=== PATIENT | male | born 1930 | race Caucasian/White ===

== ENCOUNTER 2016-05-11 20:55 | Emergency (ER) | payer MEDICARE, OTHER ==
[~2016-05-11 20:55] MED LIST: BENZ100 PO; BIOTLIQ3 SWISH-SPIT; CHOL1TAB16 PO; CHOL5000 PO; CYAN1000P IM; FEXO15TA PO; MELA3TAB PO; MEMA21CA PO; MEMA28CA PO; METR-1 PO; PLAV75TA29 PO; PROS5TAB PO; RISP0.5T20 PO; VANC500I3 PO; VIST25CA PO
[2016-05-11 21:01] VITALS: BP 147/65; PULSE 71; RESP 18; TEMP 98.1; O2SAT 97
[2016-05-11 21:15] VITALS: PULSE 78; RESP 18; O2SAT 97
[2016-05-11] MEDS ORDERED: SODIUM CHLORIDE 0.9% FLUSH 5 ML FLUSH IVF PRN (21:15)
--- NOTE | 2016-05-11 21:45 | RADRPT ---
EXAM DATE/TIME: 05/11/2016 21:21 [facility] COMPARISON: CT CERVICAL SPINE W/O CONTRAST, August 09, 2013, 9:26. INDICATIONS : Fall today; head and neck pain. RADIATION DOSE: 20.78 CTDIvol (mGy) MEDICAL HISTORY : Cerebrovascular disease. Hypertension. SURGICAL HISTORY : None. ENCOUNTER: Initial ACUITY: 1 day PAIN SCALE: 3/10 LOCATION: neck TECHNIQUE: Volumetric scanning of the cervical spine was performed. Multiplanar reconstructions in the sagittal, coronal and oblique axial planes were performed. Using automated exposure control and adjustment o f the mA and/or kV according to patient size, radiation dose was kept as low as reasonably achievable to obtain optimal diagnostic quality images. FINDINGS: Cervical spine alignment is normal. Vertebral bodies have normal height. No cortical break or trabecu lar disruption. Small, partly calcified chronic appearing posterior disc protrusion seen at C3/C4. Moderate disc space narrowing with mild uncovertebral and facet osteoarthritis seen at C5/C6. There is solid bony bridging at C6/C7, presumably surgical although potentially developmental. Moderate osteoarthritis seen anteriorly at C1/C2. CONCLUSION: 1. Intact cervical spine. 2. Chronic degenerative changes as above. Stephen Zayas MD on May 11, 2016 at 21:40 Board Certified Radiologist. This report was verified electronically.
--- NOTE | 2016-05-11 21:46 | RADRPT ---
EXAM DATE/TIME: 05/11/2016 21:21 [facility] COMPARISON: No previous studies available for comparison. INDICATIONS : Fall today; head and neck pain. RADIATION DOSE: 31.05 CTDIvol (mGy) MEDICAL HISTORY : Cerebrovascular disease. Hypertension. SURGICAL HISTORY : None. ENCOUNTER: Initial ACUITY: 1 day PAIN SCALE: 4/10 LOCATION: cranial TECHNIQUE: Multiple contiguous axial images were obtained of the head. Using automated exposure control and adj ustment of the mA and/or kV according to patient size, radiation dose was kept as low as reasonably a chievable to obtain optimal diagnostic quality images. FINDINGS: CEREBRUM: The ventricles are normal for age. No evidence of midline shift, mass lesion, hemorrhage or acute in farction. No extra-axial fluid collections are seen. Chronic low attenuation seen in the periventric ular white matter. POSTERIOR FOSSA: The cerebellum and brainstem are intact. The 4th ventricle is midline. The cerebellopontine angle i s unremarkable. EXTRACRANIAL: There is mucoperiosteal thickening of the visualized ethmoid air cells. SKULL: The calvaria is intact. No evidence of skull fracture. CONCLUSION: 1. No bleed or other acute intracranial abnormality. 2. Chronic white matter changes. 3. Mild sinus disease. Stephen Zayas MD on May 11, 2016 at 21:44 Board Certified Radiologist. This report was verified electronically.
--- NOTE | 2016-05-11 21:47 | RADRPT ---
EXAM DATE/TIME: 05/11/2016 21:26 [facility] COMPARISON: No previous studies available for comparison. INDICATIONS : Shortness of breath. Syncope. MEDICAL HISTORY : Hypertension. Cardiovascular disease. SURGICAL HISTORY : None. ENCOUNTER: Initial ACUITY: 1 day PAIN SCORE: Non-responsive. LOCATION: Bilateral chest FINDINGS: A single view of the chest demonstrates the lungs to be symmetrically aerated without evidence of mas s, infiltrate or effusion. The cardiomediastinal contours are unremarkable. Osseous structures are intact. CONCLUSION: No acute cardiopulmonary disease demonstrated. Stephen Zayas MD on May 11, 2016 at 21:46 Board Certified Radiologist. This report was verified electronically.
[2016-05-11 22:01] LABS: AUTOMATED NEUTROPHIL # 4.4 TH/MM3 (1.8-7.7); BASOPHIL # 0.1 TH/MM3 (0-0.2); EOSINOPHIL # 0.5 TH/MM3 (0-0.4); EOSINOPHIL % 6.5 % (0.0-4.0); HEMATOCRIT 36.9 % (39.0-51.0); HEMO FLAGS DIFF FINAL; LYMPH % 17.5 % (9.0-44.0); LYMPHOCYTE # 1.2 TH/MM3 (1.0-4.8); MEAN CELL VOLUME 85.3 FL (80.0-100.0); MEAN CORPUSCULAR HEMOGLOBIN 28.2 PG (27.0-34.0); MONO % 12.5 % (0.0-8.0); NEUT % 62.5 % (16.0-70.0); PLATELET COUNT 352 TH/MM3 (150-450); RED BLOOD COUNT 4.32 MIL/MM3 (4.50-5.90); RED CELL DISTRIBUTION WIDTH 15.6 % (11.6-17.2)
[2016-05-11 22:08] LABS: BACTERIA, URINE MANY /hpf; BLOOD, URINE NEG (NEG); GLUCOSE,URINE NEG (NEG); KETONE, URINE NEG (NEG); PH, URINE 6.5 (5.0-8.5); SQUAMOUS EPITHELIAL CELL URINE <1 /hpf (0-5); URINE COLOR YELLOW (YELLW/STRAW)
[2016-05-11 22:09] LABS: COMMENT (UR) CATH-CULTURE IND; CULTURE IF INDICATED CATH CULTURE IND; NITRITE,URINE POS (NEG)
[2016-05-11 22:11] LABS: APTT (PATIENT) 24.9 SEC (24.3-30.1)
[2016-05-11 22:21] VITALS: BP 138/52; PULSE 75; RESP 16; O2SAT 96
[2016-05-11 22:27] LABS: BICARBONATE 31.9 MEQ/L (21.0-32.0)
[2016-05-11] MEDS ORDERED: cefTRIAXone INJ 1,000 MG in SODIUM CHLORIDE 0.9% INJ 100 ML IV ONE (22:30)
[2016-05-11 22:35] LABS: POTASSIUM 4.2 MEQ/L (3.5-5.1)
[2016-05-11] MEDS ORDERED: CIPR-9 PO (23:03)
--- NOTE | 2016-05-11 23:04 | PD ---
HPI Chief Complaint: Fall Time Seen by Provider: 21:04 Travel History International Travel<30 days: No Contact w/Intl Traveler<30days: No Traveled to known affect area: No History of Present Illness HPI 85-year-old male sent in from his [facility]dc for evaluation of head trauma after a fall that occurred earlier today. The patient reports that he was walking to the bathroom with his walker when he became dizzy/lost his balance and fell backwards. He denies LOC. Fall was unwitnessed. He was complaining of some posterior head pain, however upon arrival to the emergency department the patient denies any physical complaints. Denies head neck or back pain. No pain in any other joint or extremity. No chest pain or dyspnea. 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) Diabetes: No Diminished Hearing: Yes ([place]) Endocrine: No GERD: Yes Genitourinary: Yes (BENIGN PROSTATE HYPERTROPHY) Hiatal Hernia: No Hypertension: Yes Immune Disorder: No Implanted Vascular Access Dvce: Yes Kidney Stones: No Musculoskeletal: Yes (ARTHRITIS ) Neurologic: Yes (CVA WITH WEAKNESS) Psychiatric: No Reproductive: No Respiratory: Yes (COPD) Migraines: No Radiation Therapy: No Renal Failure: Yes Seizures: No Sleep Apnea: No Thyroid Disease: No Ulcer: No Past Surgical History Abdominal Surgery: Yes (appendectomy,cyst removal,inguinal hernia repair) AICD: No Appendectomy: Yes Arteriovenous Shunt: No Cardiac Surgery: No Ear Surgery: No Eye Surgery: No Genitourinary Surgery: No Gynecologic Surgery: No Insulin Pump: No Joint Replacement: Yes (LT HIP) Oral Surgery: No Pacemaker: No Other Surgery: Yes (LEFT HIP /APPENDECTOMY/) Social History Alcohol Use: No Tobacco Use: No Substance Use: No Allergies-Medications (Allergen,Severity, Reaction): Coded Allergies: Aspirin (Verified Allergy, Severe, 05/11/16) Voltaren (Verified Allergy, Severe, 05/11/16) Lovastatin (Verified Allergy, Mild, 05/11/16) *MDRO Multi-Drug Resistant Organism (Unverified Allergy, Unknown, 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 C.diff 09/2013 Simvastatin (Verified Allergy, Unknown, 05/11/16) Reported Meds & Prescriptions Reported Meds & Active Scripts Active Reported Risperdal (Risperidone) 0.5 Mg Tab 0.5 Mg PO Q12HR Vistaril (Hydroxyzine Pamoate) 25 Mg Cap 25 Mg PO Q6H PRN Vitamin D3 (Cholecalciferol) 50,000 Unit Tab 50,000 Units PO MONTHLY Namenda Xr (Memantine) 28 Mg Caper 28 Mg PO DAILY 7 Days START: 02/27/2016 FOR 7 DAYS Namenda Xr (Memantine) 21 Mg Caper 21 Mg PO DAILY 7 Days Melatonin 3 Mg Tab 6 Mg PO HS PRN Tessalon Perles (Benzonatate) 100 Mg Cap 100 Mg PO TID Proscar (Finasteride) 5 Mg Tab 5 Mg PO DAILY Do not crush. Sadie Allergy (Fexofenadine HCl) 180 Mg Tab 180 Mg PO DAILY Cyanocobalamin Inj (Cyanocobalamin) 1,000 Mcg/Ml Inj 1,000 Mcg IM Q30D Plavix (Clopidogrel Bisulfate) 75 Mg Tab 75 Mg PO DAILY If okay with GI Review of Systems Except as stated in HPI: all other systems reviewed are Neg Physical Exam Narrative GENERAL: Well-developed, well-nourished, elderly-appearing male, awake, alert, no acute distress. SKIN: Warm and dry. Patient, abrasions, or ecchymosis. HEAD: Atraumatic. Normocephalic. EYES: Pupils equal and round. No scleral icterus. No injection or drainage. ENT: No nasal bleeding or discharge. Mucous membranes pink and moist. NECK: Trachea midline. No JVD. CARDIOVASCULAR: Regular rate and rhythm. RESPIRATORY: No accessory muscle use. Clear to auscultation. Breath sounds equal bilaterally. GASTROINTESTINAL: Abdomen soft, non-tender, nondistended. MUSCULOSKELETAL: No obvious deformities. No clubbing. No cyanosis. No edema. NEUROLOGICAL: Awake and alert. No obvious cranial nerve deficits. Motor grossly within normal limits. Normal speech. PSYCHIATRIC: Appropriate mood and affect; insight and judgment normal. Data Data Last Documented VS Vital Signs Date Time Temp Pulse Resp B/P Pulse Ox O2 Delivery O2 Flow Rate FiO2 05/11/16 22:21 75 16 138/52 96 05/11/16 21:01 98.1 Orders Basic Metabolic Panel (Bmp) (05/11/16 21:08) Complete Blood Count With Diff (05/11/16 21:08) Prothrombin Time / Inr (Pt) (05/11/16 21:08) Act Partial Throm Time (Ptt) (05/11/16 21:08) Iv Access Insert/Monitor (05/11/16 21:08) Ecg Monitoring (05/11/16 21:08) Oximetry (05/11/16 21:08) Sodium Chloride 0.9% Flush (Ns Flush) (05/11/16 21:15) Ct Brain W/O Iv Contrast(Rout) (05/11/16 ) Ct Cerv Spine W/O Contrast (05/11/16 ) Urinalysis - C+S If Indicated (05/11/16 21:08) Cath For Specimen (05/11/16 21:08) Chest, Single Ap (05/11/16 ) Electrocardiogram (05/11/16 ) Urine Culture (05/11/16 21:45) Ceftriaxone Inj (Rocephin Inj) (05/11/16 22:30) Labs Laboratory Tests Test 05/11/16 05/11/16 21:22 21:45 White Blood Count 7.0 TH/MM3 Red Blood Count 4.32 MIL/MM3 Hemoglobin 12.2 GM/DL Hematocrit 36.9 % Mean Corpuscular Volume 85.3 FL Mean Corpuscular Hemoglobin 28.2 PG Mean Corpuscular Hemoglobin 33.0 % Concent Red Cell Distribution Width 15.6 % Platelet Count 352 TH/MM3 Mean Platelet Volume 9.2 FL Neutrophils (%) (Auto) 62.5 % Lymphocytes (%) (Auto) 17.5 % Monocytes (%) (Auto) 12.5 % Eosinophils (%) (Auto) 6.5 % Basophils (%) (Auto) 1.0 % Neutrophils # (Auto) 4.4 TH/MM3 Lymphocytes # (Auto) 1.2 TH/MM3 Monocytes # (Auto) 0.9 TH/MM3 Eosinophils # (Auto) 0.5 TH/MM3 Basophils # (Auto) 0.1 TH/MM3 CBC Comment DIFF FINAL Differential Comment Prothrombin Time 11.0 SEC Prothromb Time International 1.0 RATIO Ratio Activated Partial 24.9 SEC Thromboplast Time Sodium Level 142 MEQ/L Potassium Level 4.2 MEQ/L Chloride Level 104 MEQ/L Carbon Dioxide Level 31.9 MEQ/L Anion Gap 6 MEQ/L Blood Urea Nitrogen 14 MG/DL Creatinine 0.81 MG/DL Estimat Glomerular Filtration 90 ML/MIN Rate Random Glucose 99 MG/DL Calcium Level 8.8 MG/DL Urine Color YELLOW Urine Turbidity HAZY Urine pH 6.5 Urine Specific [place] 1.012 Urine Protein NEG mg/dL Urine Glucose (UA) NEG mg/dL Urine Ketones NEG mg/dL Urine Occult Blood NEG Urine Nitrite POS Urine Bilirubin NEG Urine Urobilinogen 2.0 MG/DL Urine Leukocyte Esterase LARGE Urine RBC 10 /hpf Urine WBC 50 /hpf Urine Squamous Epithelial <1 /hpf Cells Urine Bacteria MANY /hpf Microscopic Urinalysis Comment CATH-CULTURE IND MDM Medical Decision Making Medical Screen Exam Complete: Yes Emergency Medical Condition: Yes Medical Record Reviewed: Yes Interpretation(s) EKG: Sinus, rate 69, left axis deviation, normal intervals, no acute ischemic abnormality. Differential Diagnosis Intracranial trauma, cervical spine injury, mechanical fall, UTI, dehydration, metabolic abnormality Narrative Course Vital signs reviewed. CBC is unremarkable. BMP is unremarkable. UA is suggestive of UTI. CT head: No bleed or other acute intracranial abnormality. Chronic white matter changes. Mild sinus disease. CT cervical spine: Intact cervical spine. Chronic degenerative changes. Chest x-ray: No acute cardio pulmonary disease. Chart review shows that the patient's most recent UTI grew out pseudomonas aeruginosa which was pansensitive. He was given a dose of Rocephin here in the emergency department be started on Cipro. He is stable for discharge back to his fdc. Diagnosis Primary Impression: Closed head injury Qualified Code: S09.90XA - Closed head injury, initial encounter Additional Impressions: Fall Qualified Code: W19.XXXA - Fall, initial encounter UTI (urinary tract infection) Qualified Code: N39.0 - Urinary tract infection with hematuria, site unspecified Referrals: Primary Care Physician 3 days Additional Instructions: Follow-up with your primary care physician this week. Give antibiotics as prescribed. Return to the emergency department if worsening symptoms or any other concerns. Scripts Ciprofloxacin (Cipro)500 Mg [id number] Mg PO BID 7 Days Ref 0 Prov:Francisco Orosco MD 05/11/16 Francisco Orosco MD May 11, 2016 23:03
[2016-05-12 06:24] VITALS: BP 121/57; PULSE 64; RESP 20; O2SAT 93
--- NOTE | 2016-05-12 22:14 | EKG ---
Date Performed: 05/11/2016 Time Performed: 21:42:49 PTAGE: 85 years EKG: Sinus rhythm MARKED LEFT AXIS DEVIATION ABNORMAL ECG PREVIOUS TRACING : 05/11/2016 21.42 Compared to the previous tracing, rate slower DOCTOR: Urvashi Petit Interpretating Date/Time 05/12/2016 22:12:58
== END 2016-05-12 08:55 ==
LOC: NEPA 20:55
DX: S09.90XA Unspecified injury of head, initial encounter (principal); N39.0 Urinary tract infection, site not specified; R31.9 Hematuria, unspecified; B96.29 Other Escherichia coli [E. coli] as the cause of diseases classified elsewhere; D64.9 Anemia, unspecified; M19.90 Unspecified osteoarthritis, unspecified site; I10 Essential (primary) hypertension; J44.9 Chronic obstructive pulmonary disease, unspecified; Z96.642 Presence of left artificial hip joint
CPT/HCPCS: 70450; 71010; 72125; 80048; 81001; 85025; 85610; 85730; 87077; 87086; 87186; 93005; 96365; 96366; 99284; J0696; P9612

== ENCOUNTER 2016-09-03 03:58 | Inpatient (IN) | payer MEDICARE, OTHER ==
[2016-09-03] VITALS (24 sets, daily range): BP systolic 64–111; BP diastolic 32–58; PULSE 77–102; RESP 14–18; TEMP 97.4–98.8; O2SAT 96–100
[~2016-09-03] VITALS: Ht 170.2 cm; Wt 70.7 kg
[~2016-09-03 03:58] MED LIST changes: -BIOTLIQ3 SWISH-SPIT; -CHOL5000 PO; +CIPR-9 PO; -METR-1 PO; -VANC500I3 PO
[2016-09-03] MEDS ORDERED: SODIUM CHLOR 0.9% 1000 ML INJ 1,000 ML IV SCH (04:03)
--- NOTE | 2016-09-03 04:12 | PD ---
HPI Chief Complaint: GI Complaint Time Seen by Provider: 04:03 Travel History International Travel<30 days: No Contact w/Intl Traveler<30days: No History of Present Illness HPI The patient is 85 years old and he arrives from a retirement. He developed bloody diarrhea prompting EMS activation. They note on scene he was found on the toilet in the midst of a bloody bowel movement. He has a history of C. difficile colitis. EMS reports the blood pressure is about 110 over systolic with a heart rate of about 90-100. The patient denies abdominal pain nausea vomiting fever. He does report recurrent episodes of diarrhea which is bloody. The patient takes Plavix. 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) Diabetes: No Diminished Hearing: Yes ([place]) Endocrine: No GERD: Yes Genitourinary: Yes (BENIGN PROSTATE HYPERTROPHY) Hiatal Hernia: No Hypertension: Yes Immune Disorder: No Implanted Vascular Access Dvce: Yes Kidney Stones: No Musculoskeletal: Yes (ARTHRITIS ) Neurologic: Yes (CVA WITH WEAKNESS) Psychiatric: No Reproductive: No Respiratory: Yes (COPD) Migraines: No Radiation Therapy: No Renal Failure: Yes Seizures: No Sleep Apnea: No Thyroid Disease: No Ulcer: No Past Surgical History Abdominal Surgery: Yes (appendectomy,cyst removal,inguinal hernia repair) AICD: No Appendectomy: Yes Arteriovenous Shunt: No Cardiac Surgery: No Ear Surgery: No Eye Surgery: No Genitourinary Surgery: No Gynecologic Surgery: No Insulin Pump: No Joint Replacement: Yes (LT HIP) Oral Surgery: No Pacemaker: No Other Surgery: Yes (LEFT HIP /APPENDECTOMY/) Social History Alcohol Use: No Tobacco Use: No Substance Use: No Allergies-Medications (Allergen,Severity, Reaction): Coded Allergies: Aspirin (Verified Allergy, Severe, 05/11/16) Voltaren (Verified Allergy, Severe, 05/11/16) Lovastatin (Verified Allergy, Mild, 05/11/16) *MDRO Multi-Drug Resistant Organism (Unverified Allergy, Unknown, 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 C.diff 09/2013 Simvastatin (Verified Allergy, Unknown, 05/11/16) Reported Meds & Prescriptions Reported Meds & Active Scripts Active Cipro (Ciprofloxacin HCl) 500 Mg Tab 500 Mg PO BID 7 Days Reported Risperdal (Risperidone) 0.5 Mg Tab 0.5 Mg PO Q12HR Vistaril (Hydroxyzine Pamoate) 25 Mg Cap 25 Mg PO Q6H PRN Vitamin D3 (Cholecalciferol) 50,000 Unit Tab 50,000 Units PO MONTHLY Namenda Xr (Memantine) 28 Mg Caper 28 Mg PO DAILY 7 Days START: 02/27/2016 FOR 7 DAYS Namenda Xr (Memantine) 21 Mg Caper 21 Mg PO DAILY 7 Days Melatonin 3 Mg Tab 6 Mg PO HS PRN Tessalon Perles (Benzonatate) 100 Mg Cap 100 Mg PO TID Proscar (Finasteride) 5 Mg Tab 5 Mg PO DAILY Do not crush. Sadie Allergy (Fexofenadine HCl) 180 Mg Tab 180 Mg PO DAILY Cyanocobalamin Inj (Cyanocobalamin) 1,000 Mcg/Ml Inj 1,000 Mcg IM Q30D Plavix (Clopidogrel Bisulfate) 75 Mg Tab 75 Mg PO DAILY If okay with GI Review of Systems Except as stated in HPI: all other systems reviewed are Neg General / Constitutional: No: Fever Gastrointestinal: Positive: Diarrhea Physical Exam Narrative GENERAL: 85-year-old male well-nourished well-developed female 3 SKIN: Focused skin assessment warm/dry. HEAD: Atraumatic. Normocephalic. EYES: Pupils equal and round. No scleral icterus. No injection or drainage. ENT: No nasal bleeding or discharge. Mucous membranes pink and moist. NECK: Trachea midline. No JVD. CARDIOVASCULAR: Regular rate and rhythm. No murmur appreciated. RESPIRATORY: No accessory muscle use. Clear to auscultation. Breath sounds equal bilaterally. GASTROINTESTINAL: Soft. No focus of tenderness. MUSCULOSKELETAL: No obvious deformities. No clubbing. No cyanosis. No edema. NEUROLOGICAL: Awake and alert. No obvious cranial nerve deficits. Motor grossly within normal limits. Normal speech. PSYCHIATRIC: Appropriate mood and affect; insight and judgment normal. Data Data Last Documented VS Vital Signs Date Time Temp Pulse Resp B/P Pulse Ox O2 Delivery O2 Flow Rate FiO2 09/03/16 04:07 94 14 105/58 97 Room Air 09/03/16 04:02 98.6 Orders Basic Metabolic Panel (Bmp) (09/03/16 04:03) Complete Blood Count With Diff (09/03/16 04:03) Prothrombin Time / Inr (Pt) (09/03/16 04:03) Act Partial Throm Time (Ptt) (09/03/16 04:03) Type And Screen (09/03/16 04:03) Ecg Monitoring (09/03/16 04:03) Iv Access Insert/Monitor (09/03/16 04:03) Oximetry (09/03/16 04:03) Ondansetron Inj (Zofran Inj) (09/03/16 04:15) Pantoprazole Inj (Protonix Inj) (09/03/16 04:15) Sodium Chlor 0.9% 1000 Ml Inj (Ns 1000 M (09/03/16 04:03) Sodium Chloride 0.9% Flush (Ns Flush) (09/03/16 04:15) C Diff Toxin Pcr (09/03/16 04:03) Metronidazole 500 Mg Inj (Flagyl 500 Mg (09/03/16 05:15) Red Blood Cells (Rbc) (09/03/16 05:08) Blood Product Administration .UPON TRANSFUSION (09/03/16 05:08) Sodium Chlor 0.9% 250 Ml Inj (Ns 250 Ml (09/03/16 05:15) Vancomycin For Oral Use Only (Vancomycin (09/03/16 05:08) Gi Bleeding Scan (09/03/16 ) Admit Order (Ed Use Only) (09/03/16 05:08) Labs Laboratory Tests Test 09/03/16 04:10 White Blood Count 7.2 TH/MM3 Red Blood Count 3.72 MIL/MM3 Hemoglobin 10.7 GM/DL Hematocrit 33.2 % Mean Corpuscular Volume 89.3 FL Mean Corpuscular Hemoglobin 28.9 PG Mean Corpuscular Hemoglobin 32.3 % Concent Red Cell Distribution Width 14.4 % Platelet Count 227 TH/MM3 Mean Platelet Volume 9.5 FL Neutrophils (%) (Auto) 60.0 % Lymphocytes (%) (Auto) 19.2 % Monocytes (%) (Auto) 14.4 % Eosinophils (%) (Auto) 5.5 % Basophils (%) (Auto) 0.9 % Neutrophils # (Auto) 4.3 TH/MM3 Lymphocytes # (Auto) 1.4 TH/MM3 Monocytes # (Auto) 1.0 TH/MM3 Eosinophils # (Auto) 0.4 TH/MM3 Basophils # (Auto) 0.1 TH/MM3 CBC Comment DIFF FINAL Differential Comment Prothrombin Time 12.1 SEC Prothromb Time International 1.1 RATIO Ratio Activated Partial 27.3 SEC Thromboplast Time Stool C. difficile Toxin (PCR) POSITIVE Stl C. difficile Toxin PRESUMPTIVE Epiderm 027 NEGATIVE Sodium Level 144 MEQ/L Potassium Level 4.1 MEQ/L Chloride Level 112 MEQ/L Carbon Dioxide Level 26.3 MEQ/L Anion Gap 6 MEQ/L Blood Urea Nitrogen 18 MG/DL Creatinine 0.63 MG/DL Estimat Glomerular Filtration 121 ML/MIN Rate Random Glucose 100 MG/DL Calcium Level 7.7 MG/DL Blood Type A POSITIVE Antibody Screen NEGATIVE MDM Medical Decision Making Medical Screen Exam Complete: Yes Emergency Medical Condition: Yes Medical Record Reviewed: Yes Differential Diagnosis Anemia, upper GI bleed, lower GI bleed, C. difficile colitis, colitis, sepsis, hemorrhagic shock Narrative Course CBC & BMP Diagram 09/03/16 04:10 INR 1.1 Hemoglobin 12.2 four months prior. Pt had large bloody bowel movement at 505AM. 2U PRBCs ordered. Platelets ordered stat. NM scan ordered. Flagyl/Vanco started. C. difficile positive Right internal jugular central venous access established D/w Dr Smith Critical Care Narrative Aggregate critical care time was 35 minutes. Time to perform other separately billable procedures was not included in the critical care time. My time did not include minutes spent treating any other patients simultaneously or on activities that did not directly contribute to the patient's treatment. The services I provided to this patient were to treat and/or prevent clinically significant deterioration that could result in: hemorrhagic shock, anemia, GI bleed I provided critical care services requiring my management, as noted below: Chart data review, documentation time, medication orders and management, vital sign assessments/reviewing monitor data, ordering and reviewing lab tests, ordering and interpreting/reviewing x-rays and diagnostic studies, care of the patient and discussion of the patient with the admitting physicians. Procedures Procedure Narrative CENTRAL VENOUS LINE: The site was prepped with Betadine and sterilely draped. It was infiltrated with 1% lidocaine plain. The deep vein was cannulated using normal Seldinger technique. A 3 lumen central line was placed in the right internal jugular site and secured with simple interrupted suture. The site was sterilely dressed. The patient tolerated the procedure well. Ultrasound guidance employed. Diagnosis Primary Impression: Bloody diarrhea Additional Impressions: Hypotension Qualified Code: I95.9 - Hypotension, unspecified hypotension type Clostridium difficile colitis Admitting Information Admitting Physician Requests: Howard Bennett MD Sep 03, 2016 04:12
[2016-09-03] MEDS ORDERED: PANTOPRAZOLE SODIUM 40 MG VIAL IVP ONE (04:15)
[2016-09-03] MEDS ORDERED: SODIUM CHLORIDE 0.9% FLUSH 10 ML FLUSH IVF PRN (04:15)
[2016-09-03] MEDS ORDERED: ONDANSETRON HCL 4 MG/2 ML VIAL IVP ONE (04:15)
[2016-09-03 04:28] LABS: AUTOMATED NEUTROPHIL # 4.3 TH/MM3 (1.8-7.7); BASOPHIL # 0.1 TH/MM3 (0-0.2); BASOPHIL % 0.9 % (0.0-2.0); EOSINOPHIL # 0.4 TH/MM3 (0-0.4); EOSINOPHIL % 5.5 % (0.0-4.0); HEMATOCRIT 33.2 % (39.0-51.0); HEMO FLAGS DIFF FINAL; LYMPH % 19.2 % (9.0-44.0); LYMPHOCYTE # 1.4 TH/MM3 (1.0-4.8); MEAN CELL VOLUME 89.3 FL (80.0-100.0); MEAN CORPUSCULAR HEMOGLOBIN 28.9 PG (27.0-34.0); MEAN CORPUSCULAR HGB CONC 32.3 % (32.0-36.0); MONO % 14.4 % (0.0-8.0); PLATELET COUNT 227 TH/MM3 (150-450); RED BLOOD COUNT 3.72 MIL/MM3 (4.50-5.90); RED CELL DISTRIBUTION WIDTH 14.4 % (11.6-17.2); WHITE BLOOD COUNT 7.2 TH/MM3 (4.0-11.0)
[2016-09-03 04:44] LABS: APTT (PATIENT) 27.3 SEC (24.3-30.1); INTERNATIONAL NORMALIZED RATIO 1.1 RATIO; PROTHROMBIN TIME - PATIENT 12.1 SEC (9.8-11.6)
[2016-09-03 04:57] LABS: BICARBONATE 26.3 MEQ/L (21.0-32.0); POTASSIUM 4.1 MEQ/L (3.5-5.1)
[2016-09-03] MEDS ORDERED: VANCOMYCIN 500 MG VIAL (FOR ORAL USE ONLY) PO STA (05:08)
[2016-09-03] MEDS ORDERED: SODIUM CHLOR 0.9% 250 ML INJ 250 ML IV ONE (05:15)
[2016-09-03] MEDS ORDERED: metroNIDAZOLE 500 MG INJ 100 ML IV ONE (05:15)
[2016-09-03 05:18] LABS: C. DIFF EPI 027 PRESUMPTIVE NEGATIVE (NEGATIVE)
[2016-09-03] MEDS ORDERED: hydrOXYzine PAMOATE 25 MG CAP PO PRN (05:30)
[2016-09-03] MEDS ORDERED: RESP: ALBUTEROL 2.5 MG/IPRATROPIUM 0.5 MG NEB (PRN) INH (05:30)
[2016-09-03] MEDS ORDERED: CHLORHEXIDINE GLUCONATE 2 % 1 PACK (2 CLOTHS) TOP PRN (05:30)
[2016-09-03] MEDS ORDERED: MISCELLANEOUS NURSING INFORMATION XX SCH (05:30)
[2016-09-03] MEDS ORDERED: SODIUM CHLORIDE 0.9% FLUSH 10 ML FLUSH PRN (05:30)
[2016-09-03] MEDS ORDERED: MORPHINE SULFATE 4 MG/ML INJ IV PRN ×2 (05:30→09:30)
[2016-09-03] MEDS ORDERED: LACTULOSE SYRUP 20 GM/30 ML CUP PO PRN (05:30)
[2016-09-03] MEDS ORDERED: BISACODYL 10 MG SUPP RECTAL PRN (05:30)
[2016-09-03] MEDS ORDERED: ACETAMINOPHEN 325 MG TAB PO PRN (05:30)
[2016-09-03] MEDS ORDERED: ONDANSETRON HCL 4 MG/2 ML VIAL IV PRN (05:30)
[2016-09-03] MEDS ORDERED: LORazepam 2 MG/ML VIAL IV PRN (05:30)
[2016-09-03] MEDS ORDERED: SENNOSIDES 8.6 MG TAB PO PRN (05:30)
[2016-09-03] MEDS ORDERED: PROCHLORPERAZINE 25 MG SUPP RECTAL PRN (05:30)
[2016-09-03] MEDS ORDERED: MAGNESIUM HYDROXIDE SUSP 30 ML CUP PO PRN (05:30)
[2016-09-03] MEDS ORDERED: ZOLPIDEM TARTRATE 5 MG TAB PO PRN (05:30)
[2016-09-03] MEDS ORDERED: METOCLOPRAMIDE HCL 10 MG/2 ML VIAL IV PRN (05:30)
[2016-09-03] MEDS ORDERED: MELATONIN 5 MG TAB PO PRN (05:45)
[2016-09-03 05:50] LABS: C. DIFF TOXIN PCR POSITIVE (NEGATIVE)
[2016-09-03] MEDS: SODIUM CHLOR 0.9% 1000 ML INJ 1,000 ML IV SCH ×3 (06:06→23:45)
[2016-09-03] MEDS: PANTOPRAZOLE SODIUM 40 MG VIAL IV SCH ×2 (06:07→18:00)
--- NOTE | 2016-09-03 06:49 | RADRPT ---
EXAM DATE/TIME: 09/03/2016 06:08 [facility] COMPARISON: CHEST SINGLE AP, May 11, 2016, 21:26. INDICATIONS : Line placement MEDICAL HISTORY : Hypertension. SURGICAL HISTORY : None. ENCOUNTER: Initial ACUITY: 1 day PAIN SCORE: 0/10 LOCATION: Bilateral chest FINDINGS: The cardiac silhouette is normal in transverse diameter. There is subsegmental atelectasis in the lef t base. A right sided internal jugular vein catheter is in place without pneumothorax with its tip in the superior vena cava. CONCLUSION: 1. Uncomplicated line placement. No evidence of pneumothorax. Good Lock MD on September 03, 2016 at 6:47 Board Certified Radiologist. This report was verified electronically.
[2016-09-03] MEDS ORDERED: SODIUM CHLOR 0.9% 1000 ML INJ 1,000 ML IV ONE ×2 (07:15)
[2016-09-03] MEDS ORDERED: TERBUTALINE INJ 1 MG/ML AMP SQ PRN (08:00)
--- NOTE | 2016-09-03 08:18 | HHI.HP ---
HPI Service Critical Care Medicine Primary Care Physician No Primary Care Physician Admission Diagnosis GI Hemorrhage Diagnosis: Travel History International Travel<30 Days: No Contact w/Intl Traveler <30 Da: No Traveled to Known Affected Are: No History of Present Illness The patient is 85 years old and he arrives from a fpc. He developed bloody diarrhea prompting EMS activation. They note on scene he was found on the toilet in the midst of a bloody bowel movement. He has a history of C. difficile colitis. EMS reports the blood pressure is about 110 over systolic with a heart rate of about 90-100. The patient denied abdominal pain nausea vomiting fever. He does report recurrent episodes of diarrhea which is bloody. The patient takes Plavix. The patient was hypotensive with systolic blood pressure in the 70s . A central line was placed and the ED the patient was volume resuscitated and received 2 units of PRBC's. Critical care medicine was consulted for management. Upon my arrival to the ED the patient was noted to have copious rectal bleeding, completing second unit of PRBC's. BP of pulmonary arrival was 112/79. Repeat labs pending. GI has been consulted. 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) Diabetes: No Diminished Hearing: Yes ([place]) Endocrine: No GERD: Yes Genitourinary: Yes (BENIGN PROSTATE HYPERTROPHY) Hiatal Hernia: No Hypertension: Yes Immune Disorder: No Implanted Vascular Access Dvce: Yes Kidney Stones: No Musculoskeletal: Yes (ARTHRITIS ) Neurologic: Yes (CVA WITH WEAKNESS) Psychiatric: No Reproductive: No Respiratory: Yes (COPD) Migraines: No Radiation Therapy: No Renal Failure: Yes Seizures: No Sleep Apnea: No Thyroid Disease: No Ulcer: No Past Surgical History Abdominal Surgery: Yes (appendectomy,cyst removal,inguinal hernia repair) AICD: No Appendectomy: Yes Arteriovenous Shunt: No Cardiac Surgery: No Ear Surgery: No Eye Surgery: No Genitourinary Surgery: No Gynecologic Surgery: No Insulin Pump: No Joint Replacement: Yes (LT HIP) Oral Surgery: No Pacemaker: No Other Surgery: Yes (LEFT HIP /APPENDECTOMY/) Social History Alcohol Use: No Tobacco Use: No Substance Use: No Allergies-Medications Allergies-Medications (Allergen,Severity, Reaction): Coded Allergies: Aspirin (Verified Allergy, Severe, 05/11/16) Voltaren (Verified Allergy, Severe, 05/11/16) Lovastatin (Verified Allergy, Mild, 05/11/16) *MDRO Multi-Drug Resistant Organism (Unverified Allergy, Unknown, 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 C.diff 09/2013 Simvastatin (Verified Allergy, Unknown, 05/11/16) Reported Meds & Prescriptions Reported Meds & Active Scripts Active Cipro (Ciprofloxacin HCl) 500 Mg Tab 500 Mg PO BID 7 Days Reported Risperdal (Risperidone) 0.5 Mg Tab 0.5 Mg PO Q12HR Vistaril (Hydroxyzine Pamoate) 25 Mg Cap 25 Mg PO Q6H PRN Vitamin D3 (Cholecalciferol) 50,000 Unit Tab 50,000 Units PO MONTHLY Namenda Xr (Memantine) 28 Mg Caper 28 Mg PO DAILY 7 Days START: 02/27/2016 FOR 7 DAYS Namenda Xr (Memantine) 21 Mg Caper 21 Mg PO DAILY 7 Days Melatonin 3 Mg Tab 6 Mg PO HS PRN Tessalon Perles (Benzonatate) 100 Mg Cap 100 Mg PO TID Proscar (Finasteride) 5 Mg Tab 5 Mg PO DAILY Do not crush. Sadie Allergy (Fexofenadine HCl) 180 Mg Tab 180 Mg PO DAILY Cyanocobalamin Inj (Cyanocobalamin) 1,000 Mcg/Ml Inj 1,000 Mcg IM Q30D Plavix (Clopidogrel Bisulfate) 75 Mg Tab 75 Mg PO DAILY If okay with GI ROS Review of Systems Except as stated in HPI: all other systems reviewed are Neg General / Constitutional: No: Fever Gastrointestinal: Positive: Diarrhea Past Family Social History Allergies: Coded Allergies: Aspirin (Verified Allergy, Severe, 05/11/16) Voltaren (Verified Allergy, Severe, 05/11/16) Lovastatin (Verified Allergy, Mild, 05/11/16) *MDRO Multi-Drug Resistant Organism (Unverified Allergy, Unknown, 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 C.diff 09/2013 Simvastatin (Verified Allergy, Unknown, 05/11/16) Physical Exam Vital Signs Vital Signs Date Time Temp Pulse Resp B/P Pulse Ox O2 Delivery O2 Flow Rate FiO2 09/03/16 07:56 89 16 100/50 100 09/03/16 07:02 88 18 80/40 98 Room Air 09/03/16 06:39 98.8 93 14 90/52 99 Room Air 09/03/16 06:33 98.2 92 14 98/45 98 Room Air 09/03/16 06:09 87 18 83/41 100 Room Air 09/03/16 05:57 97 09/03/16 05:53 97.4 96 18 80/44 100 Room Air 09/03/16 05:23 77 14 98/50 97 Room Air 09/03/16 04:07 94 14 105/58 97 Room Air 09/03/16 04:02 98.6 94 14 105/58 96 Physical Exam GENERAL: Well-nourished well-developed elderly gentleman, pale, responsive appropriately to my commands and appropriate conversation SKIN: Warm and dry. HEAD: Atraumatic. Normocephalic. EYES: Pupils equal and round. No scleral icterus. No injection or drainage. ENT: No nasal bleeding or discharge. Mucous membranes pink and moist. Uvula midline NECK: Trachea midline. No JVD. CARDIOVASCULAR: Normal rate, regular rhythm. Telemetry normal sinus rhythm RESPIRATORY: No accessory muscle use. Clear to auscultation. Breath sounds equal bilaterally. GASTROINTESTINAL: Abdomen soft, non-tender, nondistended. No guarding. Copious rectal bleeding noted, non-quantifiable. MUSCULOSKELETAL: Extremities without clubbing, cyanosis, or edema. No obvious deformities. NEUROLOGICAL: Awake and alert. RASS 0. No gross focal/sensory deficits. Follows commands in all 4 extremities. Laboratory Laboratory Tests Test 09/03/16 09/03/16 09/03/16 04:10 05:20 05:31 White Blood Count 7.2 Red Blood Count 3.72 Hemoglobin 10.7 Hematocrit 33.2 Mean Corpuscular Volume 89.3 Mean Corpuscular Hemoglobin 28.9 Mean Corpuscular Hemoglobin 32.3 Concent Red Cell Distribution Width 14.4 Platelet Count 227 Mean Platelet Volume 9.5 Neutrophils (%) (Auto) 60.0 Lymphocytes (%) (Auto) 19.2 Monocytes (%) (Auto) 14.4 Eosinophils (%) (Auto) 5.5 Basophils (%) (Auto) 0.9 Neutrophils # (Auto) 4.3 Lymphocytes # (Auto) 1.4 Monocytes # (Auto) 1.0 Eosinophils # (Auto) 0.4 Basophils # (Auto) 0.1 CBC Comment DIFF FINAL Differential Comment Prothrombin Time 12.1 Prothromb Time International 1.1 Ratio Activated Partial 27.3 Thromboplast Time Stool C. difficile Toxin (PCR) POSITIVE Stl C. difficile Toxin PRESUMPTIVE Epiderm 027 NEGATIVE Sodium Level 144 Potassium Level 4.1 Chloride Level 112 Carbon Dioxide Level 26.3 Anion Gap 6 Blood Urea Nitrogen 18 Creatinine 0.63 Estimat Glomerular Filtration 121 Rate Random Glucose 100 Calcium Level 7.7 Blood Type A POSITIVE Antibody Screen NEGATIVE Crossmatch Leukocyte-Reduced Red Blood Cells Blood Bank Comment Result Diagram: 09/03/1640909/03/[address] abdomen and pelvis pending Septic Shock Reassessment Heart: Regular rate and rhythm Skin: Warm Peripheral Pulses: Bounding Right Radial Bounding Left Radial Bounding Right Dorsalis Pedis Bounding Left Dorsalis Pedis Capillary Refill: Brisk Assessment and Plan Assessment and Plan This is a 85-year-old gentleman that has had melana for an undetermined amount of time. Presented to the ED with hypotension 79/49, tachycardia and copious ariel melena. The patient has subsequently been volume resuscitated, however ariel melena is continuous. The patient was noted to have a history of C. difficile and has been placed on empiric antibiotics. The patient's prognosis is guarded, with unknown source of bleeding. GI has been consulted, CT of the abdomen and pelvis has been ordered. Plan by systems: Neurologic: Insomnia Dementia History of CVA Anxiety disorder Neurochecks per ICU protocol Will hold Santino Mata at this time Continue home medication Risperdal Sleep hygiene-consider melatonin 5 mg daily at bedtime when necessary Respiratory: No acute issues Maintain O2 sat greater than 92% Supply oxygen via nasal cannula 1-4 L, and very to increased myocardial demand in setting of hypotension and tachycardia Bronchodilators every 2 hours when necessary for wheezing Cardiovascular: Hypotension-secondary to acute blood loss Tachycardia-indicated to acute blood loss Volume resuscitation Maintain heart rate less than 100 Phenylephrine if needed for vasopressor support Monitor CVP Insert arterial line-flow tract monitoring Renal: Insert Arteaga -- Strict I/Os FEN/GI: Lower GI bleed History of C. difficile Monitor BMP Electrolyte replacement per ICU protocol Bolused with 2 L normal saline in ED Normal saline 125/hour Consult GI-appreciate recommendations Obtain bleeding scan Obtain stat CT abdomen and pelvis Apply fecal continence containment system-monitor melena Initiate vancomycin and Flagyl Heme/ID: Acute blood loss anemia secondary to melena Transfused in the ED 2 PRBCs Follow-up post transfusion CBC Transfuse for hemoglobin less than 8 INR 1.1 Obtain LFTs Hold Plavix Endocrine: Hyperglycemia of critical illness Close monitoring per ICU protocol -- SSI Prophylaxis: GI Prophylaxis Protonix twice a day DVT Prophylaxis -- SCDs No pharmacological DVT prophylaxis in the setting of acute blood loss Lines: Right IJ day #1, PIVs 2 Dispo: This patient remains critically ill with one or more organ systems which are or may become a threat to life. I have spent in excess of 35minutes discontinuously in the care and management of this patient. This time is exclusive of procedures, and includes, but is not limited to, evaluation of the patient, review of the medical record, discussions with family, consultants, nursing staff, or respiratory therapy, and documentation in the medical record. Code Status Full Discussed Condition With Patient in ED RN, Dr. Mejia at bedside Padma Louise MD Sep 03, 2016 08:17
[2016-09-03] MEDS ORDERED: GLUCAGON 1 MG/ML VIAL OTHER PRN (08:30)
[2016-09-03] MEDS ORDERED: DEXTROSE 50% IN WATER 50 ML VIAL(D50) IV PRN (08:30)
[2016-09-03 08:45] LABS: BASOPHIL % 0.2 % (0.0-2.0); EOSINOPHIL # 0.1 TH/MM3 (0-0.4); EOSINOPHIL % 0.7 % (0.0-4.0); HEMATOCRIT 23.9 % (39.0-51.0); HEMO FLAGS DIFF FINAL; LYMPH % 6.2 % (9.0-44.0); LYMPHOCYTE # 1.1 TH/MM3 (1.0-4.8); MEAN CELL VOLUME 87.6 FL (80.0-100.0); MEAN CORPUSCULAR HEMOGLOBIN 28.9 PG (27.0-34.0); MONO % 7.8 % (0.0-8.0); NEUT % 85.1 % (16.0-70.0); PLATELET COUNT 173 TH/MM3 (150-450); RED BLOOD COUNT 2.73 MIL/MM3 (4.50-5.90); RED CELL DISTRIBUTION WIDTH 14.6 % (11.6-17.2); WHITE BLOOD COUNT 17.6 TH/MM3 (4.0-11.0)
[2016-09-03] MEDS ORDERED: DIATRIZOATE MEGLUM/DIATRIZOATE SOD 9 ML CUP PO ONE (08:45)
--- NOTE | 2016-09-03 08:54 | PD.CONS ---
HPI History of Present Illness This is a 85 year old male with a hx of recurrent C. Difficile Colitis, who was brought to ER from a local nursing facility for evaluation of bloody diarrhea. He is confused and unable to provide a good history, but according to our EMR records, this is at least his 4th episode of CDifficile Colitis. He has been treated with oral vancomycin, flagyl, and dificid in the past. According to the EMR, he is taking Cipro at the nursing facility, although I do not know why he is on this. He was found to have a bloody stool last night and brought to the ER. The ER nurse reports that he had 4 large bloody bowel movements, mostly blood with blood clots overnight and once so far since 7am. He has been hypotensive with a systolic b/p in the 80's. He was transfused 2 units of PRBC and one units of Platelets. He was also given 4L of fluid bolus and his blood pressure 100/50. Of note, the patient is on Plavix. The patient tells me that he "always" has diarrhea, although he cannot provide any further details for this. He denies any fevers, chills, nausea, vomiting, or abdominal pain. He states that he had a colonoscopy probably a year ago, although is not sure. His CDifficile PCR came back (+) with Epid 027 (-). The patient's next of kin is his grandson Francisco Combs ([phone]). I attempted to contact him to discuss EGD/Flexible sigmoidoscopy- procedure, risks, benefits, but there was no answer and therefore, I left a message. 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 Hypertension COPD Recurrent CDiff Colitis (At least 4th episode, treated with dificid, oral vanco , flagyl in past) Macular degeneration Enlarged prostate GERD Klebsiella pneumoniae ESBL positive Fracture left hip Hx SDH On Cipro at halfway, unknown reason Past Surgical History Hernia repair Appendectomy Neck surgery EGD Left hip surgery Colonoscopy (Shelley Trimble) Coded Allergies: Aspirin (Verified Allergy, Severe, 05/11/16) Voltaren (Verified Allergy, Severe, 05/11/16) Lovastatin (Verified Allergy, Mild, 05/11/16) *MDRO Multi-Drug Resistant Organism (Unverified Allergy, Unknown, 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 C.diff 09/2013 Simvastatin (Verified Allergy, Unknown, 05/11/16) Medications Allergies Coded Allergies Type Severity Reaction Last Updated Verified Aspirin Allergy Severe 05/11/16 Yes Voltaren Allergy Severe 05/11/16 Yes Lovastatin Allergy Mild 05/11/16 Yes *MDRO Multi-Drug Resistant Organism Allergy Unknown 05/11/16 No Simvastatin Allergy Unknown 05/11/16 Yes Active Scripts Medications Dose Route/Sig Days Date Category Dose Instructions Cipro (Ciprofloxacin HCl) 500 Mg Tab 500 Mg PO BID 7 05/11/16 Rx Risperdal (Risperidone) 0.5 Mg Tab 0.5 Mg PO Q12HR 02/24/16 Reported Vistaril (Hydroxyzine Pamoate) 25 Mg Cap 25 Mg PO Q6H PRN 02/24/16 Reported Vitamin D3 (Cholecalciferol) 50,000 Unit Tab 50,000 Units PO MONTHLY 02/24/16 Reported Namenda Xr (Memantine) 28 Mg Caper 28 Mg PO DAILY 7 02/24/16 Reported START: 02/27/2016 FOR 7 DAYS Namenda Xr (Memantine) 21 Mg Caper 21 Mg PO DAILY 7 02/24/16 Reported Melatonin 3 Mg Tab 6 Mg PO HS PRN 01/23/16 Reported Tessalon Perles (Benzonatate) 100 Mg Cap 100 Mg PO TID 01/23/16 Reported Proscar (Finasteride) 5 Mg Tab 5 Mg PO DAILY 01/23/16 Reported Do not crush. Sadie Allergy (Fexofenadine HCl) 180 Mg Tab 180 Mg PO DAILY 01/23/16 Reported Cyanocobalamin Inj (Cyanocobalamin) 1,000 Mcg/Ml Inj 1,000 Mcg IM Q30D 01/23/16 Reported Plavix (Clopidogrel Bisulfate) 75 Mg Tab 75 Mg PO DAILY 01/23/16 Reported If okay with GI Family History Father at age 40 from liver cancer. Social History Pt reports that he smokes 4-5 cigarettes per day No etoh, or illicit drug use. (Shelley Trimble) Review of Systems Constitutional: DENIES: Fatigue, Fever, Change in appetite Gastrointestinal: COMPLAINS OF: Bloody stools, Diarrhea, DENIES: Abdominal pain, Nausea, Vomiting, Heartburn Psychiatric: COMPLAINS OF: Confusion ROS Pt poor historian (Shelley Trimble) GI Exam Vitals I&O Vital Signs Date Time Temp Pulse Resp B/P Pulse Ox O2 Delivery O2 Flow Rate FiO2 09/03/16 07:56 89 16 100/50 100 09/03/16 07:02 88 18 80/40 98 Room Air 09/03/16 06:39 98.8 93 14 90/52 99 Room Air 09/03/16 06:33 98.2 92 14 98/45 98 Room Air 09/03/16 06:09 87 18 83/41 100 Room Air 09/03/16 05:57 97 09/03/16 05:53 97.4 96 18 80/44 100 Room Air 09/03/16 05:23 77 14 98/50 97 Room Air 09/03/16 04:07 94 14 105/58 97 Room Air 09/03/16 04:02 98.6 94 14 105/58 96 I/O 09/02/16 09/02/16 09/02/16 09/03/16 09/03/16 09/03/16 07:00 15:00 23:00 07:00 15:00 23:00 Intake Total 437 ml Output Total 800 ml Balance -363 ml Packed Cells 250 ml Platelets 187 ml Output Stool Total 800 ml # Bowel Movements 3 1 Imaging Last Impressions Chest X-Ray 09/03/16 0000 Signed Impressions: Service Date/Time: Saturday, September 03, 2016 06:08 - CONCLUSION: 1. Uncomplicated line placement. No evidence of pneumothorax. Good Lock MD Laboratory Test 09/03/16 09/03/16 09/03/16 04:10 05:20 05:31 White Blood Count 7.2 TH/MM3 Red Blood Count 3.72 MIL/MM3 Hemoglobin 10.7 GM/DL Hematocrit 33.2 % Mean Corpuscular Volume 89.3 FL Mean Corpuscular Hemoglobin 28.9 PG Mean Corpuscular Hemoglobin 32.3 % Concent Red Cell Distribution Width 14.4 % Platelet Count 227 TH/MM3 Mean Platelet Volume 9.5 FL Neutrophils (%) (Auto) 60.0 % Lymphocytes (%) (Auto) 19.2 % Monocytes (%) (Auto) 14.4 % Eosinophils (%) (Auto) 5.5 % Basophils (%) (Auto) 0.9 % Neutrophils # (Auto) 4.3 TH/MM3 Lymphocytes # (Auto) 1.4 TH/MM3 Monocytes # (Auto) 1.0 TH/MM3 Eosinophils # (Auto) 0.4 TH/MM3 Basophils # (Auto) 0.1 TH/MM3 CBC Comment DIFF FINAL Differential Comment Prothrombin Time 12.1 SEC Prothromb Time International 1.1 RATIO Ratio Activated Partial 27.3 SEC Thromboplast Time Stool C. difficile Toxin (PCR) POSITIVE Stl C. difficile Toxin PRESUMPTIVE Epiderm 027 NEGATIVE Sodium Level 144 MEQ/L Potassium Level 4.1 MEQ/L Chloride Level 112 MEQ/L Carbon Dioxide Level 26.3 MEQ/L Anion Gap 6 MEQ/L Blood Urea Nitrogen 18 MG/DL Creatinine 0.63 MG/DL Estimat Glomerular Filtration 121 ML/MIN Rate Random Glucose 100 MG/DL Calcium Level 7.7 MG/DL Blood Type A POSITIVE Antibody Screen NEGATIVE Crossmatch Leukocyte-Reduced Red Blood Cells Blood Bank Comment Physical Examination HEENT: Normocephalic; atraumatic; no jaundice. CHEST: CTA CARDIAC: RRR, hypotensive ABDOMEN: Soft, nondistended, nontender; no hepatosplenomegaly; bowel sounds are present in all four quadrants. EXTREMITIES: No clubbing, cyanosis, or edema. SKIN: Generalized pallor PRODUCT SAFETY SPECIALIST: Awake, confused (Shelley Trimble) Assessment and Plan Plan ASSESSMENT: - GIB with bloody diarrhea. Pt has hx of recurrent CDifficile Colitis and is now CDiff positive. He was brought to the ER for bloody diarrhea and has had 5 episodes of large amounts of bloody diarrhea mixed with clots. He also has been hypotensive with systolic b/p in the 80's overnight. S/P 2 units PRBC, 1 units Plts. HH 10.7/33.2---> 7.9/23.9. Pt has been on cipro at halfway. He also takes plavix. Suspect ischemic colitis on underlying Cdiff colitis. Will plan for EGD/Flexible sigmoidoscopy today. The patient' s next of kin is his grandson Francisco Combs ([phone]). I attempted to contact him to discuss EGD/Flexible sigmoidoscopy- procedure, risks, benefits, but there was no answer and therefore, I left a message. - Anemia secondary to above. S/P 2 units PRBC, 1 units Plts. HH 10.7/33.2--- > 7.9/23.9. - CDiff Colitis, recurrent. According to hospital records this is at least his 4th episode. Oral Vanco. Flagyl. - CVA, Plavix on hold - COPD, HTN per primary PLAN: - Plan for egd/flexible sigmoidoscopy - Obtain consents (Attempted to call miriam Combs ([phone]) to discuss EGD/Flexible sigmoidoscopy- procedure, risks, benefits, but there was no answer and therefore, I left a message. - NPO - SSE x 2 now - Cont. Flagyl - Cont. Oral Vanco - CT abdomen and pelvis ordered - Monitor HH - Transfuse as necessary - Supportive care - Further recommendations to follow based on results of above - Pt seen and examined by Dr. Rodas and my self and this note is written on his behalf (Shelley Trimble) Physician Comments Seen and examined with MIGUELANGEL, bleeding profusely throughthe rectum with hypotension requiring pressors. Unable to contact grandson despite multiple attempts. transfuse additional 2 units of PRBC. Emergent egd/sigmoidoscopy planned for today in the OR. CT pending. Overall status poor, need to address code status with family. Discussed with Dr. Louise. Thank you (Oriana Rodas MD ) Shelley Trimble Sep 03, 2016 08:54 Oriana Rodas MD Sep 03, 2016 10:36
[2016-09-03] MEDS: FINASTERIDE 5 MG TAB PO SCH (09:00)
[2016-09-03] MEDS: BENZONATATE 100 MG CAP PO SCH ×3 (09:00→18:00)
[2016-09-03] MEDS: risperiDONE 0.5 MG TAB PO SCH ×2 (09:00→20:35)
[2016-09-03] MEDS ORDERED: DOCUSATE SODIUM 50 MG/SENNA 8.6 MG TAB PO SCH (09:00)
[2016-09-03] MEDS: SODIUM CHLORIDE 0.9% FLUSH 10 ML FLUSH SCH ×2 (09:00→20:35)
[2016-09-03] MEDS: INSULIN NovoLIN REGULAR SUPPLEMENTAL SCALE SQ SCH (09:05)
[2016-09-03] MEDS: PHENYLEPHRINE INJ 40 MG in DEXTROSE 5% IN WATE 500 ML INJ 496 ML IV SCH ×4 (09:06→18:25)
[2016-09-03 09:37] LABS: INDIRECT BILIRUBIN 0.1 MG/DL (0.0-0.8); TOTAL BILIRUBIN ADULT 0.2 MG/DL (0.2-1.0)
[2016-09-03] MEDS ORDERED: KETAMINE HCL 500 MG/5 ML VIAL ONE (10:46)
[2016-09-03] MEDS ORDERED: PROPOFOL 200 MG/20 ML AMP IV ONE (11:16)
--- NOTE | 2016-09-03 11:32 | GIPROC ---
[facility] [address] [facility]. [facility], [address] EGD PROCEDURE REPORT EXAM DATE: 09/03/2016 PATIENT NAME: Jordan Combs MR #: [id number] BIRTHDATE: 1930 ATTENDING: Oriana Rodas MD ORDER #: [id number] INDUSTRIAL MILLWRIGHT: Fernando Mcintyre and Sandra Santana STATUS: inpatient INDICATIONS: The patient is a 85 yr old male here for an EGD due to hematochezia and acute post hemorrhagic anemia PROCEDURE PERFORMED: EGD, diagnostic MEDICATIONS: Per Anesthesia and None. TOPICAL ANESTHETIC: CONSENT: The patient understands the risks and benefits of the procedure and understands that these risks include, but are not limited to: sedation, allergic reaction, infection, perforation and/or bleeding. Alternative means of evaluation and treatment include, among others: physical exam, x-rays, and/or surgical intervention. The patient elects to proceed with this endoscopic procedure. medical equipment was checked for proper function. Hand hygiene and appropriate measures for infection prevention was taken. After the risks, benefits and alternatives of the procedure were thoroughly explained, Informed consent was verified, confirmed and timeout was successfully executed by the treatment team. The patient was anesthetized with topical anesthesia and the [id number] (Pedi C) endoscope was introduced through the mouth and advanced to the second portion of the duodenum. Retroflexed views revealed no abnormalities The gastroscope was then slowly withdrawn and removed. ESOPHAGUS: The mucosa of the esophagus appeared normal. STOMACH: There was mild gastritis in the gastric antrum. DUODENUM: The duodenal mucosa appeared normal. ADVERSE EVENTS: There were no complications. IMPRESSIONS: 1. The esophagus appeared normal 2. There was mild gastritis in the gastric antrum 3. Normal duodenal mucosa 4. Retroflexed views revealed no abnormalities RECOMMENDATIONS: 1. Continue PPI 2. Avoid NSAIDS PATIENT CONDITION: stable DISPOSITION: Inpatient REPEAT EXAM: Return as needed for EGD Oriana Rodas MD eSigned: Oriana Rodas MD 09/03/2016 11:31 AM cc:
--- NOTE | 2016-09-03 11:34 | GIPROC ---
[facility] [address] [facility]. [facility] [place], [address] COLONOSCOPY PROCEDURE REPORT EXAM DATE: 09/03/2016 PATIENT NAME: Jordan Combs MR #: [id number] BIRTHDATE: 1930 ENDOSCOPIST: Oriana Rodas MD ORDER #: [id number] TOASTER OPERATOR: Sandra Santana and Fernando Mcintyre STATUS: inpatient INDICATIONS: The patient is a 85 yr old male here for a colonoscopy due to hematochezia and iron deficiency anemia PROCEDURE PERFORMED: Colonoscopy, diagnostic MEDICATIONS: Per Anesthesia and None. PREP QUALITY: poor ESTIMATED BLOOD LOSS: None CONSENT: The patient understands the risks and benefits of the procedure and understands that these risks include, but are not limited to: sedation, allergic reaction, infection, perforation and/or bleeding. Alternative means of evaluation and treatment include, among others: physical exam, x-rays, and/or surgical intervention. The patient elects to proceed with this endoscopic procedure. medical equipment was checked for proper function. Hand hygiene and appropriate measures for infection prevention was taken. After the risks, benefits and alternatives of the procedure were thoroughly explained, Informed consent was verified, confirmed and timeout was successfully executed by the treatment team. A digital exam revealed external hemorrhoids The Pentax [id number] endoscope was introduced through the anus and advanced to the cecum, which was identified by both the appendix and ileocecal valve. The instrument was then slowly withdrawn as the colon was fully examined. COLON FINDINGS: Severe diverticulosis was noted throughout the entire examined colon. No bleeding was noted from the diverticulosis. Blood and blood clots present throughout the colon. No evidence of colitis. Retroflexed views revealed internal hemorrhoids and Retroflexed views revealed medium internal hemorrhoids The scope was then completely withdrawn from the patient and the procedure terminated. PROCEDURE WITHDRAWAL TIME:6minutes ADVERSE EVENTS: There were no complications. IMPRESSIONS: 1. Severe diverticulosis was noted throughout the entire examined colon 2. Blood and blood clots present throughout the colon. No evidence of colitis 3. Retroflexed views revealed internal hemorrhoids 4. Retroflexed views revealed medium internal hemorrhoids 5. Revealed external hemorrhoids RECOMMENDATIONS: 1. Benefiber 2 tsp daily 2. Continue surveillance 3. Yearly hemoccult 4. High fiber diet 5. No seeds, nuts and popcorn in diet 6. Bleeding scan RECALL: Return 1 week Colonoscopy Oriana Rodas MD eSigned: Oriana Rodas MD 09/03/2016 11:34 AM cc: PATIENT NAME: Jordan Combs MR#: [id number]
[2016-09-03] MEDS ORDERED: DO NOT ADM ANY ANTICOAGULANT DRUGS PRN (11:50)
[2016-09-03] MEDS: VANCOMYCIN 500 MG VIAL (FOR ORAL USE ONLY) PO SCH ×3 (13:00→20:36)
[2016-09-03] MEDS ORDERED: PHENYLEPHRINE HCL 10 MG/ML VIAL ONE ×2 (13:47→13:53)
[2016-09-03] MEDS: metroNIDAZOLE 500 MG INJ 100 ML IV SCH ×2 (14:00→20:34)
--- NOTE | 2016-09-03 17:42 | RADRPT ---
EXAM DATE/TIME: 09/03/2016 14:27 [place] COMPARISON: No previous studies available for comparison. INDICATIONS : Anemia DOSE: 21.1 mCi Tc99m Ultratag labeled red blood cells IV IMAGIN hrs MEDICAL HISTORY : Cerebrovascular disease. Hypertension. SURGICAL HISTORY : Inguinal hernia repair. Appendectomy. ENCOUNTER: Initial ACUITY: 1 day PAIN SCALE: 0/10 LOCATION: medial TECHNIQUE: Following the modified in vitro labeling of autologous red cells, dynamic continuous images were acqu ired for the specified interval. FINDINGS: BIODISTRIBUTION: There is a very good labeling of red cells without significant uptake in the gastric wall. There is good delineation of the blood pool of the spleen and abdominal vessels. BLEEDING: There is evidence of active bleeding in the expected region of the cecum or right colon. The findings were called immediately to Dr. Louise at the time of the scan. CONCLUSION: Active bleeding in the expected region of the cecum or right colon. The findings were called immediat sophy to Dr. Louise at the time of the scan. Jordan Feng MD on September 03, 2016 at 17:38 Board Certified Radiologist. This report was verified electronically.
[2016-09-03] MEDS ORDERED: BUPIVACAINE/EPINEPHRINE 0.25% PF 10 ML VIAL ONE (17:47)
[2016-09-03 18:08] LABS: HEMATOCRIT 28.7 % (39.0-51.0); REVIEW FLAG FINAL
[2016-09-03 22:29] LABS: HEMATOCRIT 25.3 % (39.0-51.0); REVIEW FLAG FINAL
--- NOTE | 2016-09-03 23:01 | MB ---
cc: AMERICA BLANCA M.D. DATE OF CONSULTATION 09/03/16 REASON FOR CONSULTATION GI hemorrhage. HISTORY OF PRESENT ILLNESS The patient is an extremely ill 85-year-old male with history recurrent C. Difficile colitis who was brought to the ER from a local nursing facility for evaluation of bloody diarrhea. The patient was confused and has had at least four episodes of C diff colitis. He has been on oral vancomycin, Flagyl and Dificid in the past. The patient has had four bloody bowel movements in the ED and one additional and has been hypotensive with a systolic pressure in the 80s. He received two units of packed cells, one unit of platelets and four liter bolus with blood pressure only of 100/50. 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 Hypertension, 4. COPD, 5. Macular degeneration 6. GE reflux disease 7. Fractured left hip recently 8. History of subdural hematoma. PAST SURGICAL HISTORY 1. Hernia repair, 2. Appendectomy, 3. Neck surgery 4. Left hip surgery. ALLERGIES ASPIRIN MOTRIN LOVASTATIN SIMVASTATIN MEDICATIONS Current listed 1. Ciprofloxacin b.i.d. 2. Risperdal 0.5 mg q.12 h 3. Vitamin D3. 4. Namenda 28 mg p.o. q. day. 5. Proscar 5 mg p.o. daily. 6. Sadie allergy 180 mg daily 7. Plavix 75 mg p.o. q. day. PHYSICAL EXAMINATION GENERAL: An extremely pale male who appears ill. VITAL SIGNS: BP 108/52, pulse 82, respirations 14. HEENT: Sclerae are anicteric. SKIN: Cool. The patient is on phenylephrine drip currently to maintain blood pressure. He has received a total of 4 units of packed cells to this point today. ABDOMEN: Soft, nondistended and nontender. LABORATORY DATA Hemoglobin 7.9, hematocrit 23.9, WBC 17.6 at 0830 hours. The patient just had H&H of 9.7 and 28.7 at 1700 hours. Coags demonstrate INR of 1.1. LFTs are within normal limits. BUN and creatinine are normal at 18 and 0.63. IMAGING STUDIES The patient underwent colonoscopy this morning which did not demonstrate any active bleeding but a fair amount of clots. Bleeding scan was just performed prior to this dictation and demonstrates active bleeding in the region of the cecum or right colon. Dr. Louise and I have discussed this and I have reviewed this and discussed this with the patient's grandson. While the patient would be able to go to the operating room and undergo an emergent procedure, he would likely require a subtotal colectomy and would likely never be reconnected given his problems with recurrent C. Diff colitis. The patient has recently had a closed head injury in April and was on hospice, but this was discontinued. I have discussed with the grandson that his long-term outlook is extremely poor and that he would at best go back to the intermediate and at worst shortly after surgery and not have any quality of life. The grandson has been considering withdrawing treatment all day and, after discussion with Dr. Louise and myself, he has decided to discontinue further resuscitative measures. ASSESSMENT GI hemorrhage from the colon with previous history of multiple episodes of C diff colitis. The patient is now hemodynamically relatively unstable and is requiring continues transfusions and pressors to maintain hemodynamic stability. I will not take the patient to the operating room and have recommended that simple comfort measures be given and the grandson is in agreement as is Dr. Louise. Thank you, Dr. Louise, for asking us to see this individual. We will see as needed. MD CHRIS Chambers/ /7:45 PM /10:43 PM
[2016-09-04] VITALS (13 sets, daily range): BP systolic 92–128; BP diastolic 36–59; PULSE 72–93; RESP 13–17; TEMP 98.6–98.8; O2SAT 98–100
[2016-09-04] MEDS: PHENYLEPHRINE INJ 40 MG in DEXTROSE 5% IN WATE 500 ML INJ 496 ML IV SCH ×6 (00:49→09:26)
[2016-09-04] MEDS: metroNIDAZOLE 500 MG INJ 100 ML IV SCH ×2 (02:05→09:25)
[2016-09-04 03:58] LABS: AUTOMATED NEUTROPHIL # 10.5 TH/MM3 (1.8-7.7); BASOPHIL % 0.1 % (0.0-2.0); EOSINOPHIL % 0.2 % (0.0-4.0); LYMPH % 15.1 % (9.0-44.0); LYMPHOCYTE # 2.3 TH/MM3 (1.0-4.8); MEAN CELL VOLUME 83.6 FL (80.0-100.0); MEAN CORPUSCULAR HGB CONC 33.5 % (32.0-36.0); MONO % 15.9 % (0.0-8.0); NEUT % 68.7 % (16.0-70.0); PLATELET COUNT 148 TH/MM3 (150-450); RED BLOOD COUNT 2.49 MIL/MM3 (4.50-5.90); RED CELL DISTRIBUTION WIDTH 15.6 % (11.6-17.2); WHITE BLOOD COUNT 15.3 TH/MM3 (4.0-11.0)
[2016-09-04 04:00] LABS: HEMO FLAGS AUTO DIFF
[2016-09-04] MEDS ORDERED: CHLORHEXIDINE GLUCONATE 2 % 1 PACK (2 CLOTHS) TOP SCH (04:00)
[2016-09-04] MEDS: SODIUM CHLOR 0.9% 1000 ML INJ 1,000 ML IV SCH ×2 (04:02→04:03)
[2016-09-04 04:03] LABS: HEMATOCRIT 20.8 % (39.0-51.0)
[2016-09-04 04:12] LABS: INTERNATIONAL NORMALIZED RATIO 1.1 RATIO; PROTHROMBIN TIME - PATIENT 12.2 SEC (9.8-11.6)
[2016-09-04 04:37] LABS: BICARBONATE 22.5 MEQ/L (21.0-32.0); CALCIUM-PROTEIN CORRECTED 8.5 MG/DL (8.5-10.1); MAGNESIUM 1.3 MG/DL (1.5-2.5); POTASSIUM 3.7 MEQ/L (3.5-5.1); TOTAL BILIRUBIN ADULT 0.3 MG/DL (0.2-1.0)
[2016-09-04] MEDS: PANTOPRAZOLE SODIUM 40 MG VIAL IV SCH (06:17)
[2016-09-04] MEDS: INSULIN NovoLIN REGULAR SUPPLEMENTAL SCALE SQ SCH (06:27)
[2016-09-04 06:56] LABS: PLATELET ESTIMATE SMEAR LOW (NORMAL); PLATELET MORPHOLOGY ENLARGED (NORMAL); SCAN/DIFF AUTO DIFF CONFIRMED
[2016-09-04] MEDS: SODIUM CHLORIDE 0.9% FLUSH 10 ML FLUSH SCH (09:00)
[2016-09-04] MEDS: risperiDONE 0.5 MG TAB PO SCH (09:25)
[2016-09-04] MEDS: BENZONATATE 100 MG CAP PO SCH (09:25)
[2016-09-04] MEDS: FINASTERIDE 5 MG TAB PO SCH (09:25)
[2016-09-04] MEDS: VANCOMYCIN 500 MG VIAL (FOR ORAL USE ONLY) PO SCH (09:25)
--- NOTE | 2016-09-04 10:38 | HHI.CCPN ---
Subjective Remarks/Hospital Course The patient is 85 years old and he arrives from a alf. He developed bloody diarrhea prompting EMS activation. They note on scene he was found on the toilet in the midst of a bloody bowel movement. He has a history of C. difficile colitis. EMS reports the blood pressure is about 110 over systolic with a heart rate of about 90-100. The patient denied abdominal pain nausea vomiting fever. He does report recurrent episodes of diarrhea which is bloody. The patient takes Plavix. The patient was hypotensive with systolic blood pressure in the 70s . A central line was placed and the ED the patient was volume resuscitated and received 2 units of PRBC's. Critical care medicine was consulted for management. Upon my arrival to the ED the patient was noted to have copious rectal bleeding, completing second unit of PRBC's. BP of pulmonary arrival was 112/79. Repeat labs pending. GI has been consulted. Subjective: 09/04: The patient underwent yesterday GI evaluation with Dr. White for car, sigmoidoscopy revealed no active signs of bleeding but copious amounts of blood noted. A subsequent bleeding scan was performed, and I spoke with Dr. Fegn which was noted to be positive in the cecum or right colon. General surgery was consulted, I spoke with Dr. Rose and discussion with grandson. Due to the patient's multiple comorbid conditions and poor prognosis, it was decided by patient and family, not to undergo subtotal colectomy. Of note the patient was previously at hospice([facility]), family and patient requesting, [facility] , to be transferred to hospice medical facility. A DNR order was placed per family and patient request. A consult was placed yesterday, awaiting follow- up. Overnight the patient continues to bleed approximately 800 cc of normal melena quantified. The patient continues on Jovi-Synephrine at maximal dose. Objective Vital Signs Date Time Temp Pulse Resp B/P Pulse Ox O2 Delivery O2 Flow Rate FiO2 09/04/16 10:00 85 09/04/16 08:00 115/36 09/04/16 06:00 98.6 14 100 09/03/16 21:27 Nasal Cannula 2.00 Intake and Output 09/03/16 09/03/16 09/04/16 08:00 16:00 00:00 Intake Total 437 ml 2400 ml 1628 ml Output Total 800 ml 800 ml 400 ml Balance -363 ml 1600 ml 1228 ml Result Diagram: 09/04/16 03409/04/[address] abdomen and pelvis pending Objective Remarks GENERAL: Well-nourished well-developed elderly gentleman, pale, responsive appropriately to my commands and appropriate conversation SKIN: Warm and dry. HEAD: Atraumatic. Normocephalic. EYES: Pupils equal and round. No scleral icterus. No injection or drainage. ENT: No nasal bleeding or discharge. Mucous membranes pink and moist. Uvula midline NECK: Trachea midline. No JVD. CARDIOVASCULAR: Normal rate, regular rhythm. Telemetry normal sinus rhythm RESPIRATORY: No accessory muscle use. Clear to auscultation. Breath sounds equal bilaterally. GASTROINTESTINAL: Abdomen soft, non-tender, nondistended. No guarding. Melena noted,. MUSCULOSKELETAL: Extremities without clubbing, cyanosis, or edema. No obvious deformities. NEUROLOGICAL: Awake and alert. RASS 0. No gross focal/sensory deficits. Follows commands in all 4 extremities. Patient is hard of hearing. Urinary Catheter: Yes Date of Insertion: Sep 03, 2016 Vascular Central Line Catheter: Yes Assessment to: Remove Date of Insertion: Sep 03, 2016 Side: Right Location: Internal, Jugular A/P Assessment and Plan Neurologic: Insomnia Dementia History of CVA Anxiety disorder Neurochecks per ICU protocol Will hold Santino Mata at this time Continue home medication Risperdal Sleep hygiene-consider melatonin 5 mg daily at bedtime when necessary Respiratory: No acute issues Maintain O2 sat greater than 92% Supply oxygen via nasal cannula 1-4 L, and very to increased myocardial demand in setting of hypotension and tachycardia Bronchodilators every 2 hours when necessary for wheezing Cardiovascular: Hypotension-secondary to acute blood loss Tachycardia-indicated to acute blood loss Volume resuscitation Phenylephrine if needed for vasopressor support Renal: Arteaga -- Strict I/Os FEN/GI: Lower GI bleed History of C. difficile Monitor BMP Electrolyte replacement per ICU protocol Bolused with 2 L normal saline in ED Normal saline 125/hour GI following- sigmoidoscopy 09/03-no active signs of bleeding, diverticulosis copious amount blood noted 09/03 bleeding scan-Dr. Feng, positive cecum or right colon Gen. surgery consulted-Dr. Rose. Patient and family decided not to undergo subtotal colectomy due to the multiple comorbid conditions, and poor prognosis Apply fecal continence containment system-monitor melena PO vancomycin and Flagyl IV Patient requesting diet-will initiate clear liquid diet Heme/ID: Acute blood loss anemia secondary to melena Transfused in the ED 2 PRBCs Follow-up post transfusion CBC Hold Plavix Endocrine: Hyperglycemia of critical illness Close monitoring per ICU protocol -- SSI Prophylaxis: GI Prophylaxis Protonix twice a day DVT Prophylaxis -- SCDs No pharmacological DVT prophylaxis in the setting of acute blood loss Lines: Right IJ day #2, right radial A-line day #2 PIVs 2 Dispo: Discussed with grandson, patient and [employer] at bedside. Hospice has been consulted. Family requests patient be transferred this a.m. to hospice facility. Family and patient requests no aggressive treatment, the patient was made a DNR. This patient remains critically ill with one or more organ systems which are or may become a threat to life. I have spent in excess of 30 minutes discontinuously in the care and management of this patient. This time is exclusive of procedures, and includes, but is not limited to, evaluation of the patient, review of the medical record, discussions with family, consultants, nursing staff, or respiratory therapy, and documentation in the medical record. Physician Padma Amaya MD Sep 04, 2016 10:38
--- NOTE | 2016-09-04 12:21 | HHI.GIFU ---
Subjective Remarks Pt resting in bed, visiting with son. No complaints. He is asking for soup. ( Cathy Ayala) Objective Vitals I&O Vital Signs Date Time Temp Pulse Resp B/P Pulse Ox O2 Delivery O2 Flow Rate FiO2 09/04/16 10:00 85 09/04/16 08:00 72 09/04/16 08:00 74 115/36 09/04/16 07:00 82 09/04/16 06:00 98.6 77 14 116/51 100 106/56 09/04/16 06:00 77 09/04/16 05:00 98.8 73 13 123/56 100 128/45 09/04/16 04:00 74 106/56 09/04/16 04:00 98.8 74 17 109/52 99 94/51 09/04/16 04:00 74 09/04/16 03:00 98.8 79 14 126/59 100 122/46 09/04/16 02:00 98.6 79 15 125/58 100 116/43 09/04/16 02:00 79 09/04/16 00:00 98.6 85 16 92/56 98 09/04/16 00:00 85 09/03/16 23:00 92 09/03/16 23:00 98 92/56 Automatic Cuff 09/03/16 22:00 92 09/03/16 21:27 99 Nasal Cannula 2.00 09/03/16 20:00 92 09/03/16 18:28 102 09/03/16 16:53 84 09/03/16 15:23 82 09/03/16 14:00 82 09/03/16 14:00 88 09/03/16 13:00 86 14 108/52 100 Nasal Cannula 4 09/03/16 12:50 98.4 86 14 118/55 100 Nasal Cannula 4 09/03/16 12:45 88 14 98/52 100 Nasal Cannula 4 09/03/16 12:30 85 14 120/56 100 Nasal Cannula 4 09/03/16 12:15 84 14 117/53 100 Nasal Cannula 4 I/O 09/03/16 09/03/16 09/03/16 09/04/16 09/04/16 09/04/16 07:00 15:00 23:00 07:00 15:00 23:00 Intake Total 437 ml 2400 ml 1628 ml 1629 ml Output Total 800 ml 800 ml 400 ml 1400 ml Balance -363 ml 1600 ml 1228 ml 229 ml Intake Oral 0 ml 0 ml IV Total 700 ml 1628 ml 1629 ml Packed Cells 250 ml 500 ml Platelets 187 ml Other 1200 ml Output Urine Total 800 ml 400 ml 1000 ml Stool Total 800 ml 400 ml Emesis 0 ml Estimated Blood Loss 0 ml # Voids 0 # Bowel Movements 3 2 0 Laboratory Laboratory Tests Test 09/03/16 09/03/16 09/03/16 09/04/16 13:45 17:42 21:55 03:40 Nasal Screen MRSA (PCR) MRSA NOT DETECTED Hemoglobin 9.7 8.3 7.0 Hematocrit 28.7 25.3 20.8 White Blood Count 15.3 Red Blood Count 2.49 Mean Corpuscular Volume 83.6 Mean Corpuscular Hemoglobin 28.0 Mean Corpuscular Hemoglobin 33.5 Concent Red Cell Distribution Width 15.6 Platelet Count 148 Mean Platelet Volume 9.0 Neutrophils (%) (Auto) 68.7 Lymphocytes (%) (Auto) 15.1 Monocytes (%) (Auto) 15.9 Eosinophils (%) (Auto) 0.2 Basophils (%) (Auto) 0.1 Neutrophils # (Auto) 10.5 Lymphocytes # (Auto) 2.3 Monocytes # (Auto) 2.4 Eosinophils # (Auto) 0.0 Basophils # (Auto) 0.0 CBC Comment AUTO DIFF Differential Comment AUTO DIFF CONFIRMED Platelet Estimate LOW Platelet Morphology Comment ENLARGED Prothrombin Time 12.2 Prothromb Time International 1.1 Ratio Sodium Level 143 Potassium Level 3.7 Chloride Level 115 Carbon Dioxide Level 22.5 Anion Gap 6 Blood Urea Nitrogen 15 Creatinine 0.63 Estimat Glomerular Filtration 121 Rate Random Glucose 135 Lactic Acid Level 1.4 Calcium Level 6.5 Protein Corrected Calcium 8.5 Phosphorus Level 2.1 Magnesium Level 1.3 Total Bilirubin 0.3 Aspartate Amino Transf 13 (AST/SGOT) Alanine Aminotransferase 10 (ALT/SGPT) Alkaline Phosphatase 39 Total Protein 3.4 Albumin 1.7 Imaging Last Impressions GI Bleed Scan Nuclear Medicine 09/03/16 0000 Signed Impressions: Service Date/Time: Saturday, September 03, 2016 14:27 - CONCLUSION: Active bleeding in the expected region of the cecum or right colon. The findings were called immediately to Dr. Louise at the time of the scan. Jordan Feng MD Chest X-Ray 09/03/16 0000 Signed Impressions: Service Date/Time: Saturday, September 03, 2016 06:08 - CONCLUSION: 1. Uncomplicated line placement. No evidence of pneumothorax. Good Lock MD Physical Exam HEENT: PERRL; normocephalic; atraumatic; no jaundice. poor dentition. CHEST: CTA CARDIAC: RRR ABDOMEN: Soft, nondistended, nontender; no hepatosplenomegaly; bowel sounds are present in all four quadrants. melena in rectal bag EXTREMITIES: No clubbing, cyanosis, or edema. SKIN: pallor; no rash; no jaundice. SAW MAN: No focal deficits; alert and oriented times three. (Cathy Ayala [facility]) Assessment and Plan Plan ASSESSMENT: - GIB with bloody diarrhea. Pt has hx of recurrent CDifficile Colitis and is now CDiff positive. He was brought to the ER for bloody diarrhea and has had 5 episodes of large amounts of bloody diarrhea mixed with clots. He also has been hypotensive with systolic b/p in the 80's overnight. S/P 2 units PRBC, 1 units Plts. HH 10.7/33.2---> 7.9/23.9. Pt has been on cipro at correction. He also takes plavix. s/p EGD/colonoscopy 09-03-16--> essentially normal EGD, severe sigmoid diverticulosis, blood and clots, no evidence colitis, hemorrhoids. Subsequent bleedign scan showed active bleeding in expected region cecum or right colon. Suspect ischemic colitis on underlying Cdiff colitis. The patient's next of kin is his grandson Francisco Combs ([phone]), Pts family seeking hospice care. - Anemia secondary to above. S/P 2 units PRBC, 1 units Plts. HH 10.7/33.2--- > 7.9/23.9. 09/04/16 7.0. - CDiff Colitis, recurrent. According to hospital records this is at least his 4th episode. Oral Vanco. Flagyl. - CVA, Plavix on hold - COPD, HTN per primary PLAN: - Cont. Flagyl - Cont. Oral Vanco - Monitor HH - Transfuse as necessary - Supportive care - GI will sign off, please reconsult if needed. - Pt seen and examined by Dr. Dior and my self and this note is written on his behalf (Cathy Ayala) Physician Comments Patient seen and examined Agree with above Continue with current supportive care Monitor labs Agree with decision for hospice We will sign off (Rubens Dior MD) Cathy Ayala Sep 04, 2016 12:21 Rubens Dior MD Sep 04, 2016 15:07
--- NOTE | 2016-09-04 14:59 | HHI.DS ---
Discharge Summary Admission Date Sep 03, 2016 at 05:11 Admitting Diagnosis GI Hemorrhage Brief History The patient is 85 years old and [facility]. He developed bloody diarrhea prompting EMS activation. They note on scene he was found on the toilet in the midst of a bloody bowel movement. He has a history of C. difficile colitis. EMS reports the blood pressure is about 110 over systolic with a heart rate of about 90-100. The patient denied abdominal pain nausea vomiting fever. He does report recurrent episodes of diarrhea which is bloody. The patient takes Plavix. The patient was hypotensive with systolic blood pressure in the 70s . A central line was placed and the ED the patient was volume resuscitated and received 2 units of PRBC's. Critical care medicine was consulted for management. Upon my arrival to the ED the patient was noted to have copious rectal bleeding, completing second unit of PRBC's. BP of pulmonary arrival was 112/79. Repeat labs pending. GI has been consulted. 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) Endocrine: No GERD: Yes Genitourinary: Yes (BENIGN PROSTATE HYPERTROPHY) Hiatal Hernia: No Hypertension: Yes Immune Disorder: No Implanted Vascular Access Dvce: Yes Kidney Stones: No Musculoskeletal: Yes (ARTHRITIS ) Neurologic: Yes (CVA WITH WEAKNESS) Psychiatric: No Reproductive: No Respiratory: Yes (COPD) Migraines: No Radiation Therapy: No Renal Failure: Yes Seizures: No Sleep Apnea: No Thyroid Disease: No Ulcer: No Past Surgical History Abdominal Surgery: Yes (appendectomy,cyst removal,inguinal hernia repair) AICD: No Appendectomy: Yes Arteriovenous Shunt: No Cardiac Surgery: No Ear Surgery: No Eye Surgery: No Genitourinary Surgery: No Gynecologic Surgery: No Insulin Pump: No Joint Replacement: Yes (LT HIP) Oral Surgery: No Pacemaker: No Other Surgery: Yes (LEFT HIP /APPENDECTOMY/) Social History Alcohol Use: No Tobacco Use: No Substance Use: No Allergies-Medications Allergies-Medications (Allergen,Severity, Reaction): Coded Allergies: Aspirin (Verified Allergy, Severe, 05/11/16) Voltaren (Verified Allergy, Severe, 05/11/16) Lovastatin (Verified Allergy, Mild, 05/11/16) *MDRO Multi-Drug Resistant Organism (Unverified Allergy, Unknown, 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 C.diff 09/2013 Simvastatin (Verified Allergy, Unknown, 05/11/16) Reported Meds & Prescriptions Reported Meds & Active Scripts Active Cipro (Ciprofloxacin HCl) 500 Mg Tab 500 Mg PO BID 7 Days Reported Risperdal (Risperidone) 0.5 Mg Tab 0.5 Mg PO Q12HR Vistaril (Hydroxyzine Pamoate) 25 Mg Cap 25 Mg PO Q6H PRN Vitamin D3 (Cholecalciferol) 50,000 Unit Tab 50,000 Units PO MONTHLY Namenda Xr (Memantine) 28 Mg Caper 28 Mg PO DAILY 7 Days START: 02/27/2016 FOR 7 DAYS Namenda Xr (Memantine) 21 Mg Caper 21 Mg PO DAILY 7 Days Melatonin 3 Mg Tab 6 Mg PO HS PRN Tessalon Perles (Benzonatate) 100 Mg Cap 100 Mg PO TID Proscar (Finasteride) 5 Mg Tab 5 Mg PO DAILY Do not crush. Sadie Allergy (Fexofenadine HCl) 180 Mg Tab 180 Mg PO DAILY Cyanocobalamin Inj (Cyanocobalamin) 1,000 Mcg/Ml Inj 1,000 Mcg IM Q30D Plavix (Clopidogrel Bisulfate) 75 Mg Tab 75 Mg PO DAILY If okay with GI ROS Review of Systems Except as stated in HPI: all other systems reviewed are Neg General / Constitutional: No: Fever Gastrointestinal: Positive: Diarrhea CBC/BMP: 09/04/16 0340 09/04/16 0340 Significant Findings Laboratory Tests Test 09/03/16 09/03/16 09/03/16 09/03/16 04:10 08:30 17:42 21:55 Red Blood Count 3.72 MIL/MM3 2.73 MIL/MM3 (4.50-5.90) (4.50-5.90) Hemoglobin 10.7 GM/DL 7.9 GM/DL 9.7 GM/DL 8.3 GM/DL (13.0-17.0) (13.0-17.0) (13.0-17.0) (13.0-17.0) Hematocrit 33.2 % 23.9 % 28.7 % 25.3 % (39.0-51.0) (39.0-51.0) (39.0-51.0) (39.0-51.0) Monocytes (%) (Auto) 14.4 % (0.0-8.0) Eosinophils (%) (Auto) 5.5 % (0.0-4.0) Monocytes # (Auto) 1.0 TH/MM3 1.4 TH/MM3 (0-0.9) (0-0.9) Prothrombin Time 12.1 SEC (9.8-11.6) Stool C. difficile Toxin (PCR) POSITIVE (NEGATIVE) Chloride Level 112 MEQ/L (98-107) Calcium Level 7.7 MG/DL (8.5-10.1) Total Protein 5.4 GM/DL (6.4-8.2) Albumin 2.4 GM/DL (3.4-5.0) White Blood Count 17.6 TH/MM3 (4.0-11.0) Neutrophils (%) (Auto) 85.1 % (16.0-70.0) Lymphocytes (%) (Auto) 6.2 % (9.0-44.0) Neutrophils # (Auto) 15.0 TH/MM3 (1.8-7.7) Test 09/04/16 03:40 White Blood Count 15.3 TH/MM3 (4.0-11.0) Red Blood Count 2.49 MIL/MM3 (4.50-5.90) Hemoglobin 7.0 GM/DL (13.0-17.0) Hematocrit 20.8 % (39.0-51.0) Platelet Count 148 TH/MM3 (150-450) Monocytes (%) (Auto) 15.9 % (0.0-8.0) Neutrophils # (Auto) 10.5 TH/MM3 (1.8-7.7) Monocytes # (Auto) 2.4 TH/MM3 (0-0.9) Platelet Estimate LOW (NORMAL) Platelet Morphology Comment ENLARGED (NORMAL) Prothrombin Time 12.2 SEC (9.8-11.6) Chloride Level 115 MEQ/L (98-107) Random Glucose 135 MG/DL (74-106) Calcium Level 6.5 MG/DL (8.5-10.1) Phosphorus Level 2.1 MG/DL (2.5-4.9) Magnesium Level 1.3 MG/DL (1.5-2.5) Aspartate Amino Transf 13 U/L (15-37) (AST/SGOT) Alanine Aminotransferase 10 U/L (12-78) (ALT/SGPT) Alkaline Phosphatase 39 U/L (45-117) Total Protein 3.4 GM/DL (6.4-8.2) Albumin 1.7 GM/DL (3.4-5.0) Hospital Course The patient is 85 years old and he [facility]. He developed bloody diarrhea prompting EMS activation. They note on scene he was found on the toilet in the midst of a bloody bowel movement. He has a history of C. difficile colitis. EMS reports the blood pressure is about 110 over systolic with a heart rate of about 90-100. The patient denied abdominal pain nausea vomiting fever. He does report recurrent episodes of diarrhea which is bloody. The patient takes Plavix. The patient was hypotensive with systolic blood pressure in the 70s . A central line was placed and the ED the patient was volume resuscitated and received 2 units of PRBC's. Critical care medicine was consulted for management. Upon my arrival to the ED the patient was noted to have copious rectal bleeding, completing second unit of PRBC's. BP of pulmonary arrival was 112/79. Repeat labs pending. GI has been consulted. Subjective: 09/04: The patient underwent yesterday GI evaluation with Dr. White for car, sigmoidoscopy revealed no active signs of bleeding but copious amounts of blood noted. A subsequent bleeding scan was performed, and I spoke with Dr. Feng which was noted to be positive in the cecum or right colon. General surgery was consulted, I spoke with Dr. Rose and discussion with grandson. Due to the patient's multiple comorbid conditions and poor prognosis, it was decided by patient and family, not to undergo subtotal colectomy. Of note the patient was previously at hospice([facility]), family and patient requesting, [facility] , to be transferred to hospice medical facility. A DNR order was placed per family and patient request. A consult was placed yesterday, awaiting follow- up. Overnight the patient continues to bleed approximately 800 cc of normal melena quantified. The patient continues on Jovi-Synephrine at maximal dose. Pt Condition on Discharge: Guarded Discharge Disposition: Hospice/Med Facility Discharge Instructions DIET: Follow Instructions for: As Tolerated, No Restrictions Activities you can perform: Continue Bedrest Additional Information Subjective: 09/04: The patient underwent yesterday GI evaluation with Dr. Mejia, sigmoidoscopy revealed no active signs of bleeding but copious amounts of blood noted. A subsequent bleeding scan was performed, and I spoke with Dr. Feng which was noted to be positive in the cecum or right colon. General surgery was consulted, I spoke with Dr. Rose and discussion with grandson. Due to the patient's multiple comorbid conditions and poor prognosis, it was decided by patient and family, not to undergo subtotal colectomy. Of note the patient was previously at hospice([facility]), family and patient requesting, [facility] , to be transferred to hospice medical facility. A DNR order was placed per family and patient request. A consult was placed yesterday, awaiting follow- up. Overnight the patient continues to bleed approximately 800 cc of normal melena quantified. The patient continues on Jovi-Synephrine at maximal dose. Family requesting transfer to hospice at this time. The patient will be discharged and transferred to Hospice medical facility this afternoon, as per family and patient request. Padma Louise MD Sep 04, 2016 14:59
== END 2016-09-04 15:15 | disposition hospice, inpatient (51) | DRG 378 ==
LOC: NEPC 03:58 → NEDA 05:11 → NEDH 10:42 → HIME 13:00
PROVIDERS: ADMIT Internal Medicine Critical Care Medicine; ATTEND Internal Medicine Critical Care Medicine
PROC: 6A550Z2 Pheresis of Platelets, Single (ICD-10-PCS; 2016-09-03)
PROC: 0T9B70Z Drainage of Bladder with Drainage Device, Via Natural or Artificial Opening (ICD-10-PCS; 2016-09-03)
PROC: 3E0F7GC Introduction of Other Therapeutic Substance into Respiratory Tract, Via Natural or Artificial Opening (ICD-10-PCS; 2016-09-03)
PROC: 0DJ08ZZ Inspection of Upper Intestinal Tract, Via Natural or Artificial Opening Endoscopic (ICD-10-PCS; 2016-09-03)
PROC: 0DJD8ZZ Inspection of Lower Intestinal Tract, Via Natural or Artificial Opening Endoscopic (ICD-10-PCS; 2016-09-03)
PROC: 30233N1 Transfusion of Nonautologous Red Blood Cells into Peripheral Vein, Percutaneous Approach (ICD-10-PCS; principal; 2016-09-03 10:50)
PROC: 05HM33Z Insertion of Infusion Device into Right Internal Jugular Vein, Percutaneous Approach (ICD-10-PCS; 2016-09-03 10:50)
DX: K92.1 Melena (principal); A04.7 Enterocolitis due to Clostridium difficile; I95.9 Hypotension, unspecified; K55.9 Vascular disorder of intestine, unspecified; I69.351 Hemiplegia and hemiparesis following cerebral infarction affecting right dominant side; D62 Acute posthemorrhagic anemia; J44.9 Chronic obstructive pulmonary disease, unspecified; F03.90 Unspecified dementia, unspecified severity, without behavioral disturbance, psychotic disturbance, mood disturbance, and anxiety; K21.9 Gastro-esophageal reflux disease without esophagitis; I10 Essential (primary) hypertension; H91.90 Unspecified hearing loss, unspecified ear; N40.0 Benign prostatic hyperplasia without lower urinary tract symptoms; M19.90 Unspecified osteoarthritis, unspecified site; Z96.642 Presence of left artificial hip joint; G47.00 Insomnia, unspecified; F41.9 Anxiety disorder, unspecified; R73.9 Hyperglycemia, unspecified; R00.0 Tachycardia, unspecified; H54.8 Legal blindness, as defined in USA; H35.30 Unspecified macular degeneration; F17.210 Nicotine dependence, cigarettes, uncomplicated; Z51.5 Encounter for palliative care; K57.30 Diverticulosis of large intestine without perforation or abscess without bleeding; Z66 Do not resuscitate; K29.70 Gastritis, unspecified, without bleeding; K64.8 Other hemorrhoids; K64.4 Residual hemorrhoidal skin tags; Z86.19 Personal history of other infectious and parasitic diseases
CPT/HCPCS: 36430; 36620; 71010; 78278; 80048; 80053; 80076; 82948; 83605; 83735; 84100; 85014; 85018; 85025; 85610; 85730; 86850; 86900; 86901; 86920; 87493; 87641; 96374; 96375; A9560; C9113; J2370; J2405; J3010; J7030; J7050; J7060; P9016; P9035